=== PATIENT | male | born 1970 | race Caucasian/White ===

== ENCOUNTER 2022-10-01 09:07 | Day surgery (SDC) | payer MEDICAID ==
[~2022-10-01] VITALS: Ht 180.3 cm; Wt 181.8 kg
[~2022-10-01 09:07] MED LIST: LIDOcaine Viscous 15ml cup ONE; MIDAZolam 1 MG/ML 5ML VIAL ONE; ORPH100T4 PO; fentaNYL/PF 50MCG/1 ML 2ML syringe ONE
[2022-10-01 09:20] VITALS: BP 192/120
[2022-10-01] MEDS ORDERED: NORCO PO (09:56)
[2022-10-01] MEDS ORDERED: OMEP20CA16 PO (09:57)
[2022-10-01] MEDS ORDERED: CARI-75 PO (09:57)
[2022-10-01 11:35] VITALS: BP 123/63
[2022-10-01 11:45] VITALS: BP 170/87
[2022-10-01 11:55] VITALS: BP 146/80
[2022-10-01 12:05] VITALS: BP 148/92
== END 2022-10-01 12:10 | disposition home or self-care (01) ==
LOC: GI LAB 09:07
PROVIDERS: ATTEND Internal Medicine Gastroenterology
DX: D50.9 Iron deficiency anemia, unspecified (principal); D12.3 Benign neoplasm of transverse colon; K21.00 Gastro-esophageal reflux disease with esophagitis, without bleeding; K29.70 Gastritis, unspecified, without bleeding; E66.9 Obesity, unspecified; Z68.43 Body mass index [BMI] 50.0-59.9, adult
CPT/HCPCS: 43239; 45380; 99152; 99153; J2250; J3010; J7030; Z7512; 43235; A4615; A4620